=== PATIENT | male | born 1950 | race Caucasian/White ===

== ENCOUNTER 2017-12-09 18:40 | Inpatient (IN) | payer OTHER ==
[2017-12-09 21:01] LABS: KETONE, URINE AUTO RFX NEGATIVE (NEGATIVE); MUCUS, URINE RFX SMALL (NEGATIVE); NITRITE, URINE AUTO RFX NEGATIVE (NEGATIVE); RBC, URINE AUTO RFX 15 /HPF (0-3); SPECIFIC GRAVITY UR AUTO RFX 1.012 (1.002-1.035); SQUAM EPITHELIAL CELL UR AURFX 0 /HPF (0-6); WBC, URINE AUTO RFX 10 /HPF (0-3)
[2017-12-09 21:03] LABS: LEUKOCYTE ESTERASE UR AUTO RFX 1+ (NEGATIVE)
[2017-12-09 23:09] LABS: BASO % 0.8 % (0.0-1.0); EOS # 0.7 10^3/uL (0.0-0.50); EOS % 13.9 % (0.0-3.0); HEMATOCRIT 25.1 % (42.0-52.0); HEMOGLOBIN 7.3 g/dl (14.0-18.0); IMMATURE GRANULOCYTE % 0.2 % (0-0); LYMPH # 1.2 10^3/uL (1.5-4.5); LYMPH % 24.9 % (24.0-44.0); MEAN CORPUSCULAR HEMOGLOBIN 22.9 pg (27.0-33.0); MEAN CORPUSCULAR HGB CONC 29.1 g/dl (32.0-36.5); MEAN CORPUSCULAR VOLUME 78.7 fl (80.0-96.0); MONO # 0.5 10^3/uL (0.0-0.8); MONO % 9.8 % (0.0-5.0); NEUTROPHILS # 2.5 10^3/uL (1.8-7.7); NEUTROPHILS % 50.4 % (36.0-66.0); PLATELET COUNT, AUTOMATED 121 10^3/uL (150-450); RED BLOOD COUNT 3.19 10^6/uL (4.30-6.10); RED CELL DISTRIBUTION WIDTH 15.6 % (11.5-14.5); WHITE BLOOD COUNT 4.9 10^3/uL (4.0-10.0)
[2017-12-09] MEDS: NS 1,000 ML IV (23:15)
[2017-12-09 23:21] LABS: INR 1.07
[2017-12-09 23:22] LABS: PARTIAL THROMBOPLASTIN TIME 33.9 SECONDS (26.8-37.9)
[2017-12-09 23:25] LABS: LACTIC ACID SEPSIS PROTOCOL 0.7 MMOL/L (0.4-2.0)
[2017-12-09 23:35] LABS: ALKALINE PHOSPHATASE 119 U/L (45-117); ALT/SGPT 27 U/L (12-78); AMYLASE 46 U/L (25-115); ANION GAP 6 MEQ/L (8-16); AST/SGOT 35 U/L (7-37); BILIRUBIN,DIRECT 0.1 MG/DL (0.0-0.2); BILIRUBIN,TOTAL 0.3 MG/DL (0.2-1.0); BLOOD UREA NITROGEN 17 MG/DL (7-18); CALCIUM LEVEL 7.7 MG/DL (8.8-10.2); CARBON DIOXIDE LEVEL 26 MEQ/L (21-32); CHLORIDE LEVEL 111 MEQ/L (98-107); CPK CREATINE PHOSPHOKINASE 175 U/L (39-308); CREATININE FOR GFR 0.88 MG/DL (0.70-1.30); GLOMERULAR FILTRATION RATE > 60.0 (>49); GLUCOSE, FASTING 90 MG/DL (70-100); LIPASE 175 U/L (73-393); POTASSIUM SERUM 3.9 MEQ/L (3.5-5.1); SODIUM LEVEL 143 MEQ/L (136-145); TROPONIN I 0.22 NG/ML (< 0.10)
[2017-12-09 23:36] LABS: CK-MB VALUE MASS 5.2 NG/ML (0.0-3.6); MB/CK RELATIVE INDEX 2.97 (< OR =4)
[2017-12-09 23:46] LABS: ACETAMINOPHEN LEVEL < 2.0 UG/ML (10.0-30.0); ETHYL ALCOHOL (ETHANOL) < 0.003 % (0.000-0.010); SALICYLATE LEVEL 2.2 MG/DL (5.0-30.0)
[2017-12-10] MEDS ORDERED: ISOVUE-370 76% 100ML VIAL (Q9967) As Ordered (00:53)
[2017-12-10] MEDS: NORCO, ANEXSIA 5/325MG TABLET (HYDROcodone/ACETAMINOPHEN) PO (02:06)
[2017-12-10 02:30] LABS: IMMEDIATE SPIN CROSSMATCH 1 2
[2017-12-10] MEDS ORDERED: MORPHINE 2 MG/ML 1ML SYRINGE IV (02:45)
[2017-12-10] MEDS ORDERED: ONDANSETRON 4MG/2ML VIAL (J2405) IV (02:45)
[2017-12-10] MEDS ORDERED: LORazepam 2 MG/ML VIAL (J2060) IV (02:45)
[2017-12-10] MEDS: OXAZEPAM 15 MG CAP PO ×3 (04:01→21:11)
[2017-12-10] MEDS: MULTIVITAMIN -ADULT INJECTION 10 ML, THIAMINE INJection 100 MG, FOLIC ACID 1 MG in NS 1... IV (06:02)
[2017-12-10 06:50] LABS: BASO % 0.8 % (0.0-1.0); EOS # 0.7 10^3/uL (0.0-0.50); EOS % 14.8 % (0.0-3.0); HEMATOCRIT 28.8 % (42.0-52.0); HEMOGLOBIN 8.6 g/dl (14.0-18.0); IMMATURE GRANULOCYTE % 0.2 % (0-0); LYMPH # 1.2 10^3/uL (1.5-4.5); LYMPH % 23.6 % (24.0-44.0); MEAN CORPUSCULAR HEMOGLOBIN 23.7 pg (27.0-33.0); MEAN CORPUSCULAR HGB CONC 29.9 g/dl (32.0-36.5); MEAN CORPUSCULAR VOLUME 79.3 fl (80.0-96.0); MONO # 0.5 10^3/uL (0.0-0.8); NEUTROPHILS # 2.5 10^3/uL (1.8-7.7); NEUTROPHILS % 50.6 % (36.0-66.0); PLATELET COUNT, AUTOMATED 128 10^3/uL (150-450); RED BLOOD COUNT 3.63 10^6/uL (4.30-6.10); RED CELL DISTRIBUTION WIDTH 15.8 % (11.5-14.5)
[2017-12-10 07:03] LABS: ESTIMATED AVERAGE GLUCOSE 114 MG/DL (60-110); HEMOGLOBIN A1c 5.6 %
[2017-12-10 07:06] LABS: ANION GAP 5 MEQ/L (8-16); BLOOD UREA NITROGEN 16 MG/DL (7-18); CALCIUM LEVEL 7.9 MG/DL (8.8-10.2); CARBON DIOXIDE LEVEL 26 MEQ/L (21-32); CHLORIDE LEVEL 111 MEQ/L (98-107); CK-MB VALUE MASS 4.3 NG/ML (0.0-3.6); CPK CREATINE PHOSPHOKINASE 150 U/L (39-308); CREATININE FOR GFR 0.86 MG/DL (0.70-1.30); GLOMERULAR FILTRATION RATE > 60.0 (>49); GLUCOSE, FASTING 89 MG/DL (70-100); MB/CK RELATIVE INDEX 2.86 (< OR =4); SODIUM LEVEL 142 MEQ/L (136-145); TROPONIN I 0.22 NG/ML (< 0.10)
[2017-12-10 07:24] LABS: CHOLESTEROL LEVEL 141 MG/DL (<200); CHOLESTEROL RISK RATIO 2.104 (<5); HDL CHOLESTEROL 67 MG/DL (>40); LDL CHOLESTEROL 65.2 MG/DL (<100); NON-HDL-C 74 MG/DL; TRIGLYCERIDES LEVEL 44 MG/DL (<150)
[2017-12-10] MEDS: SUCRALFATE 1 GM TAB PO ×4 (07:53→21:11)
[2017-12-10 09:52] LABS: FERRITIN 7 NG/ML (26-388); IRON (FE) 70 UG/DL (65-175); PERCENT SATURATION 17.7 % (19.7-50.0); TOTAL IRON BINDING CAPACITY 395 UG/DL (250-450)
[2017-12-10 10:14] LABS: POS COUNT POS FLAG
[2017-12-10 10:15] LABS: RETIC HEMOGLOBIN EQUIVALENT 18.6 pg (24-36); RETICULOCYTE # 70.9 10^9/L (17-77); RETICULOCYTE % 2.1 % (0.5-1.5)
[2017-12-10] MEDS: OMEPRAZOLE 20 MG CAP PO (10:23)
[2017-12-10 12:56] LABS: HEMATOCRIT 29.3 % (42.0-52.0); HEMOGLOBIN 8.7 g/dl (14.0-18.0); MEAN CORPUSCULAR HGB CONC 29.7 g/dl (32.0-36.5); MEAN CORPUSCULAR VOLUME 80.7 fl (80.0-96.0); PLATELET COUNT, AUTOMATED 125 10^3/uL (150-450); RED BLOOD COUNT 3.63 10^6/uL (4.30-6.10); RED CELL DISTRIBUTION WIDTH 15.7 % (11.5-14.5); WHITE BLOOD COUNT 5.7 10^3/uL (4.0-10.0)
[2017-12-10 13:30] LABS: CK-MB VALUE MASS 3.8 NG/ML (0.0-3.6); CPK CREATINE PHOSPHOKINASE 135 U/L (39-308); MB/CK RELATIVE INDEX 2.81 (< OR =4); TROPONIN I 0.19 NG/ML (< 0.10)
[2017-12-10] MEDS ORDERED: SLF 3 ML SYR IV (17:00)
[2017-12-10 18:50] LABS: CPK CREATINE PHOSPHOKINASE 126 U/L (39-308); TROPONIN I 0.19 NG/ML (< 0.10)
[2017-12-10 18:51] LABS: CK-MB VALUE MASS 3.4 NG/ML (0.0-3.6); MB/CK RELATIVE INDEX 2.69 (< OR =4)
[2017-12-10] MEDS: SLF 3 ML SYR IV (21:11)
[2017-12-11] MEDS: CEPACOL LOZENGE PO (00:11)
[2017-12-11] MEDS: guaiFENesin DM LIQ 10ML UD PO (00:11)
[2017-12-11] MEDS: guaiFENesin ER 600 MG TAB PO ×3 (00:13→21:52)
[2017-12-11 04:33] LABS: BASO % 0.7 % (0.0-1.0); EOS # 0.9 10^3/uL (0.0-0.50); EOS % 14.3 % (0.0-3.0); HEMATOCRIT 29.9 % (42.0-52.0); HEMOGLOBIN 8.8 g/dl (14.0-18.0); IMMATURE GRANULOCYTE % 0.3 % (0-0); LYMPH # 0.9 10^3/uL (1.5-4.5); LYMPH % 15.3 % (24.0-44.0); MEAN CORPUSCULAR HEMOGLOBIN 23.3 pg (27.0-33.0); MEAN CORPUSCULAR HGB CONC 29.4 g/dl (32.0-36.5); MEAN CORPUSCULAR VOLUME 79.3 fl (80.0-96.0); MONO # 0.5 10^3/uL (0.0-0.8); MONO % 8.5 % (0.0-5.0); NEUTROPHILS # 3.7 10^3/uL (1.8-7.7); NEUTROPHILS % 60.9 % (36.0-66.0); PLATELET COUNT, AUTOMATED 134 10^3/uL (150-450); RED BLOOD COUNT 3.77 10^6/uL (4.30-6.10); RED CELL DISTRIBUTION WIDTH 15.8 % (11.5-14.5); WHITE BLOOD COUNT 6.1 10^3/uL (4.0-10.0)
[2017-12-11 05:04] LABS: ANION GAP 5 MEQ/L (8-16); BLOOD UREA NITROGEN 12 MG/DL (7-18); CALCIUM LEVEL 8.1 MG/DL (8.8-10.2); CARBON DIOXIDE LEVEL 26 MEQ/L (21-32); CHLORIDE LEVEL 111 MEQ/L (98-107); CREATININE FOR GFR 0.73 MG/DL (0.70-1.30); GLOMERULAR FILTRATION RATE > 60.0 (>49); GLUCOSE, FASTING 94 MG/DL (70-100); SODIUM LEVEL 142 MEQ/L (136-145)
[2017-12-11] MEDS: SLF 3 ML SYR IV ×3 (05:08→21:53)
[2017-12-11 08:06] LABS: ALPHA 1 ANTITRYPSIN 185 mg/dL (90-200)
[2017-12-11 08:06] LABS: HAPTOGLOBIN 79 mg/dL (34-200)
[2017-12-11] MEDS: SUCRALFATE 1 GM TAB PO ×4 (08:19→21:52)
[2017-12-11 08:27] LABS: CK-MB VALUE MASS 2.4 NG/ML (0.0-3.6); CPK CREATINE PHOSPHOKINASE 101 U/L (39-308); MB/CK RELATIVE INDEX 2.37 (< OR =4); TROPONIN I 0.15 NG/ML (< 0.10)
[2017-12-11] MEDS: OMEPRAZOLE 20 MG CAP PO (11:01)
[2017-12-11] MEDS: FUROSEMIDE 20 MG TAB PO (12:25)
[2017-12-12] MEDS: CEPACOL LOZENGE PO (04:24)
[2017-12-12] MEDS: SLF 3 ML SYR IV ×3 (04:25→21:30)
[2017-12-12 05:17] LABS: BASO % 0.8 % (0.0-1.0); EOS # 0.8 10^3/uL (0.0-0.50); EOS % 15.2 % (0.0-3.0); HEMATOCRIT 28.3 % (42.0-52.0); HEMOGLOBIN 8.5 g/dl (14.0-18.0); IMMATURE GRANULOCYTE % 0.2 % (0-0); LYMPH # 0.9 10^3/uL (1.5-4.5); LYMPH % 16.7 % (24.0-44.0); MEAN CORPUSCULAR HEMOGLOBIN 23.7 pg (27.0-33.0); MEAN CORPUSCULAR VOLUME 78.8 fl (80.0-96.0); MONO # 0.6 10^3/uL (0.0-0.8); NEUTROPHILS # 2.9 10^3/uL (1.8-7.7); NEUTROPHILS % 56.1 % (36.0-66.0); PLATELET COUNT, AUTOMATED 113 10^3/uL (150-450); RED BLOOD COUNT 3.59 10^6/uL (4.30-6.10); RED CELL DISTRIBUTION WIDTH 15.9 % (11.5-14.5); WHITE BLOOD COUNT 5.2 10^3/uL (4.0-10.0)
[2017-12-12 05:38] LABS: ANION GAP 7 MEQ/L (8-16); BLOOD UREA NITROGEN 10 MG/DL (7-18); CALCIUM LEVEL 7.7 MG/DL (8.8-10.2); CARBON DIOXIDE LEVEL 28 MEQ/L (21-32); CHLORIDE LEVEL 112 MEQ/L (98-107); CREATININE FOR GFR 0.74 MG/DL (0.70-1.30); GLOMERULAR FILTRATION RATE > 60.0 (>49); GLUCOSE, FASTING 106 MG/DL (70-100); SODIUM LEVEL 147 MEQ/L (136-145)
[2017-12-12] MEDS: SUCRALFATE 1 GM TAB PO ×4 (08:28→21:30)
[2017-12-12] MEDS: OMEPRAZOLE 20 MG CAP PO (08:28)
[2017-12-12] MEDS: guaiFENesin ER 600 MG TAB PO ×2 (08:29→21:30)
[2017-12-12] MEDS: FUROSEMIDE 20 MG TAB PO (08:29)
[2017-12-12 08:39] LABS: REASON FOR REVIEW COMPREHENSIVE REVIEW; SLIDE REVIEW Report; SOURCE PERIPHERAL SMEAR
[2017-12-12 09:37] LABS: CK-MB VALUE MASS 1.9 NG/ML (0.0-3.6); CPK CREATINE PHOSPHOKINASE 99 U/L (39-308); MB/CK RELATIVE INDEX 1.91 (< OR =4)
[2017-12-12 10:07] LABS: VITAMIN B12 LEVEL 277 PG/ML (247-911)
[2017-12-12 10:08] LABS: FOLATE > 24.0 NG/ML (>5.4)
[2017-12-12 10:18] LABS: HEPATITIS B SURFACE ANTIGEN NEGATIVE (NEGATIVE)
[2017-12-12 10:40] LABS: HEPATITIS C VIRUS ABY INDEX < 0.0 INDEX (<0.8)
[2017-12-12 10:41] LABS: HEPATITIS B CORE ANTIBODY IGM NEGATIVE (NEGATIVE)
[2017-12-12 10:44] LABS: HEPATITIS A ANTIBODY IGM NEGATIVE (NEGATIVE)
[2017-12-12 11:57] LABS: ESTIMATED AVERAGE GLUCOSE 123 MG/DL (60-110); HEMOGLOBIN A1c 5.9 %
[2017-12-12] MEDS: BENZONATATE 100 MG CAP PO ×3 (12:17→21:34)
[2017-12-12 15:19] LABS: SPEC. GRAVITY BODY FLUIDS 1.012 (NOT ESTABLISHED)
[2017-12-12 15:37] LABS: SOURCE, BODY FLUID ALBUMIN ASCITES; SOURCE, BODY FLUID GLUCOSE ASCITES; SOURCE, BODY FLUID TOT PROTEIN ASCITES; TOTAL PROTEIN, BODY FLUID 1.4 G/DL (NOT ESTABLISHED)
[2017-12-12 15:41] LABS: RBC BODY FLUID < 2 10^3/uL (<2)
[2017-12-12 15:42] LABS: APPEARANCE, BODY FLUID CLEAR (CLEAR); ASCITES FL COLOR PALE YELLOW (COLORLESS); BF DIFF IF INDICATED? NO (NO); SOURCE, BODY FLUID ASCITES; WBC BODY FLUID < 1 /uL (0-10)
[2017-12-12 17:13] LABS: CK-MB VALUE MASS 1.9 NG/ML (0.0-3.6); CPK CREATINE PHOSPHOKINASE 112 U/L (39-308); MB/CK RELATIVE INDEX 1.69 (< OR =4); TROPONIN I 0.08 NG/ML (< 0.10)
[2017-12-13 00:08] LABS: ANTINUCLEAR ANTIBODIES DIRECT Negative (Negative); CERULOPLASMIN 31.1 mg/dL (16.0-31.0)
[2017-12-13] MEDS: SLF 3 ML SYR IV ×2 (04:52→14:13)
[2017-12-13 05:43] LABS: BASO % 0.6 % (0.0-1.0); EOS # 0.7 10^3/uL (0.0-0.50); EOS % 14.7 % (0.0-3.0); HEMATOCRIT 29.5 % (42.0-52.0); HEMOGLOBIN 8.9 g/dl (14.0-18.0); IMMATURE GRANULOCYTE % 0.4 % (0-0); LYMPH % 19.9 % (24.0-44.0); MEAN CORPUSCULAR HEMOGLOBIN 23.9 pg (27.0-33.0); MEAN CORPUSCULAR HGB CONC 30.2 g/dl (32.0-36.5); MEAN CORPUSCULAR VOLUME 79.1 fl (80.0-96.0); MONO # 0.6 10^3/uL (0.0-0.8); MONO % 11.8 % (0.0-5.0); NEUTROPHILS # 2.5 10^3/uL (1.8-7.7); NEUTROPHILS % 52.6 % (36.0-66.0); PLATELET COUNT, AUTOMATED 116 10^3/uL (150-450); RED BLOOD COUNT 3.73 10^6/uL (4.30-6.10); RED CELL DISTRIBUTION WIDTH 16.1 % (11.5-14.5); WHITE BLOOD COUNT 4.8 10^3/uL (4.0-10.0)
[2017-12-13 06:07] LABS: ANION GAP 7 MEQ/L (8-16); BLOOD UREA NITROGEN 12 MG/DL (7-18); CALCIUM LEVEL 7.8 MG/DL (8.8-10.2); CARBON DIOXIDE LEVEL 26 MEQ/L (21-32); CHLORIDE LEVEL 109 MEQ/L (98-107); CREATININE FOR GFR 0.78 MG/DL (0.70-1.30); GLOMERULAR FILTRATION RATE > 60.0 (>49); GLUCOSE, FASTING 136 MG/DL (70-100); POTASSIUM SERUM 3.7 MEQ/L (3.5-5.1); SODIUM LEVEL 142 MEQ/L (136-145)
[2017-12-13 07:38] LABS: ALBUMIN 2.9 GM/DL (3.2-5.2)
[2017-12-13] MEDS: BENZONATATE 100 MG CAP PO (09:06)
[2017-12-13] MEDS: SUCRALFATE 1 GM TAB PO ×2 (09:06→12:28)
[2017-12-13] MEDS: FUROSEMIDE 20 MG TAB PO (09:41)
[2017-12-13] MEDS: OMEPRAZOLE 20 MG CAP PO (09:41)
[2017-12-13] MEDS: guaiFENesin ER 600 MG TAB PO (09:41)
== END 2017-12-13 15:10 | disposition home or self-care (01) | DRG 812 ==
LOC: M ED 18:40 → M ED INP 12-10 02:32 → M PCU 12-10 16:17
PROC: 30233N1 Transfusion of Nonautologous Red Blood Cells into Peripheral Vein, Percutaneous Approach (ICD-10-PCS; principal; 2017-12-10)
PROC: 0W9G3ZZ Drainage of Peritoneal Cavity, Percutaneous Approach (ICD-10-PCS; 2017-12-12)
DX: D64.9 Anemia, unspecified (principal); K70.31 Alcoholic cirrhosis of liver with ascites; K57.30 Diverticulosis of large intestine without perforation or abscess without bleeding; N20.0 Calculus of kidney; D69.6 Thrombocytopenia, unspecified; F10.20 Alcohol dependence, uncomplicated; E88.09 Other disorders of plasma-protein metabolism, not elsewhere classified; R16.1 Splenomegaly, not elsewhere classified; Z96.642 Presence of left artificial hip joint; Z87.891 Personal history of nicotine dependence

== ENCOUNTER → 2017-12-15 | Outpatient (CLI) | payer OTHER ==
[2017-12-15 07:33] LABS: HEMATOCRIT 34.6 % (42.0-52.0); HEMOGLOBIN 10.3 g/dl (14.0-18.0); MEAN CORPUSCULAR HEMOGLOBIN 23.5 pg (27.0-33.0); MEAN CORPUSCULAR HGB CONC 29.8 g/dl (32.0-36.5); PLATELET COUNT, AUTOMATED 147 10^3/uL (150-450); RED BLOOD COUNT 4.38 10^6/uL (4.30-6.10); RED CELL DISTRIBUTION WIDTH 16.2 % (11.5-14.5); WHITE BLOOD COUNT 5.4 10^3/uL (4.0-10.0)
[2017-12-15 07:45] LABS: INR 1.07
[2017-12-15 08:05] LABS: ALBUMIN 3.1 GM/DL (3.2-5.2); ALBUMIN/GLOBULIN RATIO 0.94 (1.00-1.93); ALKALINE PHOSPHATASE 137 U/L (45-117); ALT/SGPT 31 U/L (12-78); ANION GAP 4 MEQ/L (8-16); AST/SGOT 34 U/L (7-37); BILIRUBIN,TOTAL 0.4 MG/DL (0.2-1.0); BLOOD UREA NITROGEN 17 MG/DL (7-18); CALCIUM LEVEL 8.2 MG/DL (8.8-10.2); CARBON DIOXIDE LEVEL 29 MEQ/L (21-32); CHLORIDE LEVEL 107 MEQ/L (98-107); CHOLESTEROL LEVEL 171 MG/DL (<200); CREATININE FOR GFR 0.79 MG/DL (0.70-1.30); GLOMERULAR FILTRATION RATE > 60.0 (>49); GLUCOSE, FASTING 90 MG/DL (70-100); HDL CHOLESTEROL 66 MG/DL (>40); LDL CHOLESTEROL 92.2 MG/DL (<100); NON-HDL-C 105 MG/DL; POTASSIUM SERUM 4.2 MEQ/L (3.5-5.1); PROSTATIC SPECIFIC AG MONITOR 0.24 NG/ML (< 4.0); SODIUM LEVEL 140 MEQ/L (136-145); TOTAL PROTEIN 6.4 GM/DL (6.4-8.2); TRIGLYCERIDES LEVEL 64 MG/DL (<150)
[2017-12-15 08:27] LABS: ESTIMATED AVERAGE GLUCOSE 117 MG/DL (60-110); HEMOGLOBIN A1c 5.7 %
[2017-12-16 14:50] LABS: HEPATITIS B SURFACE ANTIGEN NEGATIVE (NEGATIVE)
[2017-12-16 15:07] LABS: HEPATITIS B CORE ANTIBODY IGM NEGATIVE (NEGATIVE)
[2017-12-16 15:08] LABS: HEPATITIS A ANTIBODY IGM NEGATIVE (NEGATIVE)
== END ==
LOC: M LAB 06:16
DX: D64.9 Anemia, unspecified (principal); R53.83 Other fatigue; E03.9 Hypothyroidism, unspecified
CPT/HCPCS: 84443

== ENCOUNTER 2018-05-01 11:30 | Day surgery (SDC) | payer OTHER ==
[2018-05-01] MEDS: NS 1,000 ML IV (12:00)
[2018-05-01] MEDS ORDERED: PROPOFOL 500 MG/50 ML VIAL As Ordered (13:20)
[2018-05-01] MEDS ORDERED: LIDOCAINE 2% INJ 100 MG/5 ML SDV (FOR ANES.) As Ordered (13:20)
[2018-05-01] MEDS ORDERED: fentaNYL 100 MCG/2 ML INJECTION (J3010) As Ordered (13:20)
== END 2018-05-01 15:12 | disposition home or self-care (01) ==
LOC: M OPP 11:30
DX: Z12.11 Encounter for screening for malignant neoplasm of colon (principal); D12.5 Benign neoplasm of sigmoid colon; D12.3 Benign neoplasm of transverse colon; K64.0 First degree hemorrhoids; K57.30 Diverticulosis of large intestine without perforation or abscess without bleeding; K74.60 Unspecified cirrhosis of liver; I85.10 Secondary esophageal varices without bleeding; K76.6 Portal hypertension; K31.89 Other diseases of stomach and duodenum; Z87.19 Personal history of other diseases of the digestive system; Z86.79 Personal history of other diseases of the circulatory system; R06.83 Snoring; Z96.642 Presence of left artificial hip joint; F17.210 Nicotine dependence, cigarettes, uncomplicated
CPT/HCPCS: 45385

== ENCOUNTER → 2018-08-17 | Outpatient (CLI) | payer OTHER | LOC: M WUC 18:33 | DX: M77.31 Calcaneal spur, right foot (principal) | CPT/HCPCS: 73650 ==

== ENCOUNTER 2018-10-01 04:30 | Emergency (ER) | payer OTHER ==
[2018-10-01] MEDS: methylPREDNISolone SUSP 40 MG/ML (DEPO-medrol) VIAL (J1030) IM (06:15)
[2018-10-01] MEDS ORDERED: LIDOCAINE 1% SDV INJ 30 ML VIAL SC (06:15)
[2018-10-01] MEDS: LIDOCAINE 1% MDV 20ML VIAL SC (06:35)
== END 2018-10-01 06:57 | disposition home or self-care (01) ==
LOC: M ED 04:30
DX: M72.2 Plantar fascial fibromatosis (principal); I10 Essential (primary) hypertension; K74.60 Unspecified cirrhosis of liver; F17.210 Nicotine dependence, cigarettes, uncomplicated
CPT/HCPCS: J1030

== ENCOUNTER → 2020-04-11 | Outpatient (CLI) | payer OTHER ==
[~2020-04-11] MED LIST: ALEV220C2 PO; AMOX875T PO; BENZ-18 PO; CEPA1LOZ2 PO; DEXTROMETHORPHAN PO; GUAIFENESIN PO; HYDR-3713 PO; IBUP-1022 PO; IBUP-1114 PO; LASI20TA3 PO; MAGN250T9 PO; MUCI600T37 PO; OXAZ10CA3 PO; SOMA350T PO; SPIR50TA4 PO; VITATAB11 PO
[2020-04-11 14:34] LABS: BLOOD UREA NITROGEN 19 MG/DL (7-18); CREATININE FOR GFR 1.01 MG/DL (0.70-1.30); GLOMERULAR FILTRATION RATE > 60.0 (>49)
== END ==
LOC: M LAB 13:39
PROVIDERS: ATTEND Physician Assistant Medical
DX: I81 Portal vein thrombosis (principal)

== ENCOUNTER → 2020-04-21 | Outpatient (CLI) | payer OTHER ==
[~2020-04-21] MED LIST changes: +PROHANCE 279.3MG/ML 15ML VIAL As Ordered ONE; +PROHANCE 279.3MG/ML 5ML VIAL As Ordered ONE
--- NOTE | 2020-04-21 16:22 | REP ---
MRI ABDOMEN WITH AND WITHOUT CONTRAST: HISTORY: Superior mesenteric vein thrombosis. TECHNIQUE: Multiple sequences obtained in the axial and coronal planes prior to and following the intravenous administration of 17 mL ProHance. The liver has a cirrhotic appearance. There is diffuse heterogeneous signal and enhancement but no suspicious enhancing mass. Margins of the liver are micronodular. Spleen is enlarged. Length of the spleen is approximately 17.3 cm with no intrinsic abnormality identified. Adrenal glands are normal. No pancreatic mass or pancreatic duct dilatation is seen. Gallbladder is mildly distended with mid diffuse wall thickening. There is no biliary dilatation. Bilateral renal cysts are present. The largest cyst is in the upper pole of the left kidney 7.4 cm in diameter. There is no adenopathy. There is mild perihepatic ascites. On the postcontrast images, there is a moderate amount of thrombus throughout the superior mesenteric vein. This does not occlude the superior mesenteric vein. A very small amount extends into the very proximal aspect of the main portal vein. However, the remaining portal veins including the intrahepatic portions demonstrate no evidence of thrombus. There is no hepatic vein thrombosis. Main portal vein is dilated, consistent with portal hypertension, measuring approximately 18-19 mm in maximum diameter. There is no splenic vein thrombosis. IMPRESSION: Cirrhotic liver with mild perihepatic ascites. Moderate splenomegaly. Dilated main portal vein, consistent with portal hypertension. There is diffuse moderate nonocclusive thrombus throughout the superior mesenteric vein. Very small amount of thrombus is seen extending into the very proximal aspect of the main portal vein. However, the remaining portal venous system demonstrates no evidence of thrombus. Electronically Signed by Gal Mcwilliams MD 04/21/2020 11:07 P
== END ==
LOC: M RAD 07:10
DX: I81 Portal vein thrombosis (principal); K74.60 Unspecified cirrhosis of liver; R16.1 Splenomegaly, not elsewhere classified; K55.069 Acute infarction of intestine, part and extent unspecified
CPT/HCPCS: 74183; A9576

== ENCOUNTER → 2020-04-23 | Outpatient (CLI) | payer OTHER ==
[~2020-04-23] MED LIST changes: -PROHANCE 279.3MG/ML 5ML VIAL As Ordered ONE
--- NOTE | 2020-04-23 14:01 | REP ---
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 . Multiple sequences obtained prior to and following the intravenous administration of 30 mL ProHance. Comparison is made with prior study of 04/21/2020. Once again, there is partial thrombosis of the superior mesenteric vein. A moderate amount of thrombus is seen diffusely up to the primary bifurcation of the superior mesenteric vein. This is unchanged. There is very mild eccentric thrombus anterior on the right of the main portal vein at its origin. This is also unchanged. There is no other evidence of portal vein thrombosis. Splenic vein is patent with no thrombus. Once again, the liver is noted to be cirrhotic. There is splenomegaly. The main portal vein is dilated consistent with portal hypertension. There are bilateral renal cysts. There is mild perihepatic ascites. IMPRESSION: No change in the partial thrombosis of superior mesenteric vein compared to the prior study of 04/21/2020. Minimal thrombosis extends into the origin of the main portal vein. No splenic vein thrombosis. Electronically Signed by Gal Mcwilliams MD 04/24/2020 11:22 A
== END ==
LOC: M RAD 10:17
DX: I81 Portal vein thrombosis (principal); K55.069 Acute infarction of intestine, part and extent unspecified
CPT/HCPCS: A9576; C8902

== ENCOUNTER → 2020-12-17 | Outpatient (CLI) | payer OTHER ==
[~2020-12-17] MED LIST changes: -PROHANCE 279.3MG/ML 15ML VIAL As Ordered ONE
--- NOTE | 2020-12-17 13:35 | REP ---
INDICATION: CIRRHOSIS OF LIVER COMPARISON: 06/02/2014 TECHNIQUE: Real time combs scale and color B-mode ultrasound examination using curved array transducer. FINDINGS: Liver is heterogeneous with coarsened echotexture consistent with known cirrhosis. Main portal vein is dilated to 19 mm and demonstrates normal hepatopetal flow. SMV demonstrates normal flow direction. No focal hepatic mass lesion identified. Small to moderate amount of right upper quadrant/perihepatic ascites noted. Pancreas is incompletely evaluated due to interposed bowel gas but visualized portions appear normal. The gallbladder is normal and without gallstones, wall thickening, or pericholecystic fluid. No biliary ductal dilatation is appreciated and the common bile duct measures 6.3 mm diameter. Right kidney is normal in reniform shape without hydronephrosis and measures 10.5 x 6.2 x 5.2 cm with 2.3 cm upper pole cyst. IMPRESSION: Findings again consistent with hepatocellular disease/cirrhosis. No focal hepatic lesion. [id number] perihepatic ascites. <Electronically signed by Phani Lyons > 12/17/20 [id number]
== END ==
LOC: M RAD 09:02
PROVIDERS: ATTEND Physician Assistant Medical
DX: K74.60 Unspecified cirrhosis of liver (principal); R18.8 Other ascites

== ENCOUNTER → 2021-04-04 | Outpatient (CLI) | payer OTHER ==
[~2021-04-04] MED LIST changes: +FERR325T81 PO; +NADO20TA PO; +OMEP1CAP73 PO; +VITATAB73 PO; +VITMTA PO
== END ==
LOC: M LABSMTC 08:00
PROVIDERS: ATTEND Anesthesiology
DX: Z20.828 Contact with and (suspected) exposure to other viral communicable diseases (principal); Z11.59 Encounter for screening for other viral diseases

== ENCOUNTER → 2021-04-07 | Day surgery (SDC) | payer OTHER ==
[~2021-04-07] VITALS: Ht 177.8 cm; Wt 87.1 kg
[~2021-04-07] MED LIST changes: +LIDOCAINE 2% 100MG/5ML SDV (FOR ANES.) As Ordered ONE; +NS 1,000 ML IV ONE; +fentaNYL 100 MCG/2 ML INJECTION (J3010) As Ordered ONE; +propofoL 200 MG/20 ML VIAL As Ordered ONE
[2021-04-07 08:43] VITALS: BP 139/78
--- NOTE | 2021-04-07 09:25 | ROOR ---
Patient Name: Devon Robertson Procedure Date: 04/07/2021 7:57 AM Date of : 1950 Age: 70 Room: [facility] Gender: Male Note Status: Finalized Procedure: Upper GI endoscopy Indications: For therapy of esophageal varices Providers: Rudy Mcmanus MD Referring MD: [facility] Sham[facility] PRATER [facility], Admin. Requesting Provider: Medicines: Monitored Anesthesia Care Complications: No immediate complications. Procedure: Pre-Anesthesia Assessment: - Prior to the procedure, a History and Physical was performed, and patient medications and allergies were reviewed. The patient is competent. The risks and benefits of the procedure and the sedation options and risks were discussed with the patient. All questions were answered and informed consent was obtained. Patient identification and proposed procedure were verified by the physician, the nurse and the anesthesiologist in the procedure room. Mental Status Examination: alert and oriented. Airway Examination: normal oropharyngeal airway and neck mobility. Respiratory Examination: clear to auscultation. CV Examination: normal. Prophylactic Antibiotics: The patient does not require prophylactic antibiotics. Prior Anticoagulants: The patient has taken no previous anticoagulant or antiplatelet agents. ASA Grade Assessment: II - A patient with mild systemic disease. After reviewing the risks and benefits, the patient was deemed in satisfactory condition to undergo the procedure. The anesthesia plan was to use monitored anesthesia care (MAC). Immediately prior to administration of medications, the patient was re-assessed for adequacy to receive sedatives. The heart rate, respiratory rate, oxygen saturations, blood pressure, adequacy of pulmonary ventilation, and response to care were monitored throughout the procedure. The physical status of the patient was re-assessed after the procedure. The Endoscope was introduced through the mouth, and advanced to the second part of duodenum. The upper GI endoscopy was accomplished without difficulty. The patient tolerated the procedure well. Findings: Three columns of non-bleeding grade II varices were found in the middle third of the esophagus and in the lower third of the esophagus,. No stigmata of recent bleeding were evident and no red suhail signs were present. Scarring from prior treatment was visible. Evidence of partial eradication was visible. Four bands were successfully placed with complete eradication, resulting in deflation of varices. There was no bleeding during and at the end of the procedure. Patchy moderate inflammation characterized by congestion (edema), erosions, erythema, friability and granularity was found in the gastric body and in the gastric antrum. Biopsies were taken with a cold forceps for Helicobacter pylori testing. Verification of patient identification for the specimen was done by the physician and nurse using the patient's name, date and medical record number. Estimated blood loss was minimal. The duodenal bulb and second portion of the duodenum were normal. Impression: - Non-bleeding grade II esophageal varices. Completely eradicated. Banded. - Gastritis. Biopsied. - Normal duodenal bulb and second portion of the duodenum. Recommendation: - Patient has a contact number available for emergencies. The signs and symptoms of potential delayed complications were discussed with the patient. Return to normal activities tomorrow. Written discharge instructions were provided to the patient. - Clear liquid diet today, then advance as tolerated to mechanical soft diet and low sodium diet. - No ibuprofen, naproxen, or other non-steroidal anti-inflammatory drugs. - Continue present medications. - Use Protonix (pantoprazole) 40 mg PO twice daily - to be taken in morning (1/2 hour before breakfast) and at bedtime ( atleast 3 hours after last meal) for 6 weeks. - Use sucralfate suspension 1 gram PO QID for 2 weeks. - Repeat upper endoscopy in 1 year per protocol. - Return to GI clinic in [facility] (address [address], [address], [place], [facility]) in 4 -- 6 weeks. Please call GI clinic @ [phone] for apppointment date and time. - Await pathology results. - Return to primary care physician. Procedure Code(s): --- Professional --- 42056, Esophagogastroduodenoscopy, flexible, transoral; with band ligation of esophageal/gastric varices 60134, Esophagogastroduodenoscopy, flexible, transoral; with biopsy, single or multiple Diagnosis Code(s): --- Professional --- I85.00, Esophageal varices without bleeding K29.70, Gastritis, unspecified, without bleeding CPT copyright 2019 [employer]. All rights reserved. The codes documented in this report are preliminary and upon carrier associate review may be revised to meet current compliance requirements. Rudy Mcmanus MD Rudy Mcmanus MD 04/07/2021 9:25:03 AM Electronically signed by Rudy Mcmanus MD Number of Addenda: 0 Note Initiated On: 04/07/2021 7:57 AM Estimated Blood Loss: Estimated blood loss was minimal.
== END | disposition home or self-care (01) ==
LOC: M OPP 06:59
PROVIDERS: ATTEND Internal Medicine Gastroenterology
DX: K29.70 Gastritis, unspecified, without bleeding (principal); I85.00 Esophageal varices without bleeding; Z79.899 Other long term (current) drug therapy; Z87.891 Personal history of nicotine dependence
CPT/HCPCS: 43239; 43244; 88305; J3010

== ENCOUNTER → 2021-08-21 | Outpatient (CLI) | payer OTHER ==
[~2021-08-21] MED LIST changes: -LIDOCAINE 2% 100MG/5ML SDV (FOR ANES.) As Ordered ONE; -NS 1,000 ML IV ONE; -fentaNYL 100 MCG/2 ML INJECTION (J3010) As Ordered ONE; -propofoL 200 MG/20 ML VIAL As Ordered ONE
--- NOTE | 2021-08-21 09:20 | REP ---
INDICATION: ESOPHAGEAL VARICES WITHOUT BLEEDING COMPARISON: 12/17/2020 TECHNIQUE: Real time combs scale ultrasound examination using curved array transducer. FINDINGS: Liver demonstrates coarsened echotexture consistent with cirrhosis. The main portal vein is dilated to 21 mm and demonstrates nonocclusive thrombus with otherwise normal flow direction and venous wave pattern at 24 cm/sec. Very small amount of perihepatic ascites noted. Gallbladder demonstrates wall thickening which may be secondary to chronic cirrhosis. No evidence for gallstones or pericholecystic fluid. No biliary ductal dilatation is appreciated and the common bile duct measures 4.3 mm diameter. Visualized portions of the pancreas are unremarkable. Splenomegaly noted (splenic index 1560) without evidence for focal splenic lesion identified. The bilateral kidneys are relatively normal and without hydronephrosis. Right kidney measures 11.5 x 6.4 x 5.9 cm and includes 2.5 cm upper pole cyst. Left kidney measures 13.2 x 5.6 x 4.8 cm and includes 8 cm upper pole cyst and 1.7 cm midpole cyst. Abdominal aorta is incompletely evaluated due to interposed bowel gas. IMPRESSION: 1. Cirrhosis with evidence for portal venous hypertension including splenomegaly and dilated main portal vein with nonocclusive thrombus noted. Trace perihepatic ascites. 2. Bilateral renal cysts (left greater than right). <Electronically signed by Phani Lyons > 08/21/21 [id number]
== END ==
LOC: M RAD 08:16
PROVIDERS: ATTEND Internal Medicine Gastroenterology
DX: K74.60 Unspecified cirrhosis of liver (principal); N28.1 Cyst of kidney, acquired; I85.00 Esophageal varices without bleeding

== ENCOUNTER → 2021-08-26 | Outpatient (REF) | payer OTHER | LOC: M LAB REF 18:15 | PROVIDERS: ATTEND Surgery | DX: C44.612 Basal cell carcinoma of skin of right upper limb, including shoulder (principal) ==

== ENCOUNTER → 2021-10-12 | Outpatient (REF) | payer OTHER | LOC: M LAB REF 18:22 | PROVIDERS: ATTEND Surgery | DX: D48.5 Neoplasm of uncertain behavior of skin (principal) ==

== ENCOUNTER → 2022-03-10 | Outpatient (CLI) | payer OTHER ==
[~2022-03-10] MED LIST changes: +BENZ1LOZ10 PO; -CEPA1LOZ2 PO; +EQL50TAB2 PO; +PANT40TA29 PO; +RA M500C PO; +[UNRECOGNIZED DRUG - CODE] PO
== END ==
LOC: M LABSMTC 11:07
PROVIDERS: ATTEND Anesthesiology
DX: Z01.818 Encounter for other preprocedural examination (principal); Z11.52 Encounter for screening for COVID-19

== ENCOUNTER → 2022-03-30 | Outpatient (CLI) | payer OTHER | LOC: M WHC 07:02 | PROVIDERS: ATTEND Internal Medicine Gastroenterology | DX: K70.30 Alcoholic cirrhosis of liver without ascites (principal) ==

== ENCOUNTER → 2022-04-14 | Outpatient (CLI) | payer OTHER ==
[~2022-04-14] MED LIST changes: +SUCR1SS PO
== END ==
LOC: M LABSMTC 10:32
PROVIDERS: ATTEND Anesthesiology
DX: Z01.818 Encounter for other preprocedural examination (principal); Z11.52 Encounter for screening for COVID-19

== ENCOUNTER 2022-04-16 11:04 | Day surgery (SDC) | payer OTHER ==
[~2022-04-16] VITALS: Ht 177.8 cm; Wt 87.0 kg
[~2022-04-16 11:04] MED LIST changes: +LIDOCAINE 2% 100MG/5ML SDV (FOR ANES.) As Ordered ONE; +NS 1,000 ML IV ONE; +fentaNYL 100 MCG/2 ML INJECTION As Ordered ONE; +propofoL 200 MG/20 ML VIAL As Ordered ONE
[2022-04-16] MEDS ORDERED: fentaNYL 100 MCG/2 ML INJECTION As Ordered ONE (12:36)
[2022-04-16] MEDS ORDERED: propofoL 200 MG/20 ML VIAL As Ordered ONE ×2 (12:36→13:06)
[2022-04-16] MEDS ORDERED: LIDOCAINE 2% 100MG/5ML SDV (FOR ANES.) As Ordered ONE (12:36)
[2022-04-16 13:17] VITALS: BP 120/9
[2022-04-16] MEDS ORDERED: ONDANSETRON 4MG/2ML VIAL As Ordered ONE (13:48)
== END 2022-04-16 14:22 | disposition home or self-care (01) ==
LOC: M OPP 11:04
PROVIDERS: ATTEND Internal Medicine Gastroenterology
CPT/HCPCS: 43244; J2405; J3010

== ENCOUNTER 2022-10-02 15:11 | Emergency (ER) | payer OTHER ==
[~2022-10-02] VITALS: Ht 177.8 cm; Wt 93.2 kg
[~2022-10-02 15:11] MED LIST changes: -LIDOCAINE 2% 100MG/5ML SDV (FOR ANES.) As Ordered ONE; -NS 1,000 ML IV ONE; -fentaNYL 100 MCG/2 ML INJECTION As Ordered ONE; -propofoL 200 MG/20 ML VIAL As Ordered ONE
[2022-10-02] MEDS ORDERED: TRAM50TA2 PO ×2 (22:59→23:01)
[2022-10-02 23:26] VITALS: BP 136/80
== END 2022-10-02 23:27 | disposition home or self-care (01) ==
LOC: M ED 18:49
DX: S76.012A Strain of muscle, fascia and tendon of left hip, initial encounter (principal); W01.0XXA Fall on same level from slipping, tripping and stumbling without subsequent striking against object, initial encounter; Y92.009 Unspecified place in unspecified non-institutional (private) residence as the place of occurrence of the external cause; D69.6 Thrombocytopenia, unspecified; D64.9 Anemia, unspecified; K74.60 Unspecified cirrhosis of liver; I85.00 Esophageal varices without bleeding; Z79.899 Other long term (current) drug therapy

== ENCOUNTER → 2022-10-20 | Outpatient (CLI) | payer OTHER ==
[~2022-10-20] MED LIST changes: +TRAM50TA2 PO
== END ==
LOC: M SOG 07:52
PROVIDERS: ATTEND Orthopaedic Surgery Adult Reconstructive Orthopaedic Surgery
DX: M25.552 Pain in left hip (principal); Z53.9 Procedure and treatment not carried out, unspecified reason

== ENCOUNTER → 2022-11-17 | Outpatient (CLI) | payer OTHER | LOC: M RAD 07:04 | PROVIDERS: ATTEND Internal Medicine Gastroenterology | DX: K70.30 Alcoholic cirrhosis of liver without ascites (principal) ==

== ENCOUNTER → 2022-11-25 | Outpatient (CLI) | payer OTHER | LOC: M RAD 09:27 | PROVIDERS: ATTEND Orthopaedic Surgery Adult Reconstructive Orthopaedic Surgery | DX: Z96.642 Presence of left artificial hip joint (principal) | CPT/HCPCS: 78315; A9503 ==

== ENCOUNTER → 2022-12-01 | Outpatient (CLI) | payer OTHER | LOC: M SOG 15:35 | PROVIDERS: ATTEND Orthopaedic Surgery Adult Reconstructive Orthopaedic Surgery | DX: M17.0 Bilateral primary osteoarthritis of knee (principal); M25.561 Pain in right knee; M25.562 Pain in left knee ==

== ENCOUNTER → 2022-12-02 | Outpatient (CLI) | payer OTHER | LOC: M LAB 08:49 | PROVIDERS: ATTEND Internal Medicine Gastroenterology | DX: K70.30 Alcoholic cirrhosis of liver without ascites (principal) ==

== ENCOUNTER → 2022-12-08 | Outpatient (CLI) | payer MEDICARE, OTHER ==
[2022-12-08 18:36] LABS: BLOOD UREA NITROGEN 22 MG/DL (9-23); CREATININE FOR GFR 0.95 MG/DL (0.70-1.30); GLOMERULAR FILTRATION RATE > 60.0 (>49)
== END ==
LOC: M LAB 17:37
PROVIDERS: ATTEND Orthopaedic Surgery Adult Reconstructive Orthopaedic Surgery
DX: M17.0 Bilateral primary osteoarthritis of knee (principal)

== ENCOUNTER → 2022-12-16 | Outpatient (CLI) | payer OTHER | LOC: M PLARAD 10:11 | PROVIDERS: ATTEND Orthopaedic Surgery Adult Reconstructive Orthopaedic Surgery | DX: M89.9 Disorder of bone, unspecified (principal); M94.262 Chondromalacia, left knee; M85.652 Other cyst of bone, left thigh ==

== ENCOUNTER 2023-02-12 07:44 | Emergency (ER) | payer OTHER ==
[~2023-02-12] VITALS: Ht 177.8 cm; Wt 88.4 kg
[2023-02-12] MEDS ORDERED: PRES10CA2 (08:08)
[2023-02-12] MEDS ORDERED: NS 1,000 ML IV ONE ×2 (08:20→09:30)
[2023-02-12 08:49] LABS: BASO % 0.3 % (0.0-1.0); EOS # 0.1 10^3/uL (0.0-0.5); HEMATOCRIT 42.6 % (42.0-52.0); HEMOGLOBIN 14.3 g/dl (13.5-17.5); LYMPH # 0.8 10^3/uL (1.5-5.0); LYMPH % 13.1 % (24.0-44.0); MEAN CORPUSCULAR HEMOGLOBIN 28.8 pg (27.0-33.0); MEAN CORPUSCULAR HGB CONC 33.6 g/dl (32.0-36.5); MEAN CORPUSCULAR VOLUME 85.9 fl (80.0-96.0); MONO # 1.1 10^3/uL (0.0-0.8); MONO % 17.5 % (2.0-8.0); NEUTROPHILS % 66.9 % (36.0-66.0); RED BLOOD COUNT 4.96 10^6/uL (4.30-6.10)
[2023-02-12 09:11] LABS: PLATELET COUNT, AUTOMATED 85 10^3/uL (150-450)
[2023-02-12 09:22] LABS: ALBUMIN 3.3 G/DL (3.2-5.2); BILIRUBIN,DIRECT 0.4 MG/DL (<0.4); BILIRUBIN,TOTAL 1.5 MG/DL (0.3-1.2); CALCIUM LEVEL 8.4 MG/DL (8.3-10.6); CREATININE FOR GFR 1.43 MG/DL (0.70-1.30); POTASSIUM SERUM 3.7 MMOL/L (3.5-5.1); TOTAL PROTEIN 6.1 G/DL (5.7-8.2)
[2023-02-12 11:37] VITALS: BP 145/91
== END 2023-02-12 11:53 | disposition home or self-care (01) ==
LOC: M ED 07:44 → UNDOADMIN 10:22 → M ED INP 10:22 → M ED 11:53
DX: N17.9 Acute kidney failure, unspecified (principal); K70.30 Alcoholic cirrhosis of liver without ascites; F17.200 Nicotine dependence, unspecified, uncomplicated; Z86.718 Personal history of other venous thrombosis and embolism; Z79.810 Long term (current) use of selective estrogen receptor modulators (SERMs); Z79.899 Other long term (current) drug therapy

== ENCOUNTER → 2023-02-15 | Outpatient (CLI) | payer OTHER ==
[~2023-02-15] MED LIST changes: +PRES10CA2
[2023-02-15 18:59] LABS: CALCIUM LEVEL 8.1 MG/DL (8.3-10.6); CREATININE FOR GFR 1.37 MG/DL (0.70-1.30); GLOMERULAR FILTRATION RATE 54.7 (>42); POTASSIUM SERUM 3.9 MMOL/L (3.5-5.1)
== END ==
LOC: M LAB 16:40
PROVIDERS: ATTEND Emergency Medicine
DX: N17.9 Acute kidney failure, unspecified (principal)

== ENCOUNTER → 2023-06-08 | Outpatient (CLI) | payer OTHER | LOC: M RAD 09:04 | PROVIDERS: ATTEND Internal Medicine Gastroenterology | DX: K76.6 Portal hypertension (principal) ==

== ENCOUNTER → 2023-07-20 | Outpatient (CLI) | payer OTHER ==
[~2023-07-20] MED LIST changes: +ISOVUE-370 76% 100ML VIAL As Ordered ONE
== END ==
LOC: M RAD 08:35
PROVIDERS: ATTEND Nurse Practitioner Family
DX: I72.3 Aneurysm of iliac artery (principal); D73.2 Chronic congestive splenomegaly; K74.60 Unspecified cirrhosis of liver; R16.1 Splenomegaly, not elsewhere classified; N28.1 Cyst of kidney, acquired
CPT/HCPCS: 74177; Q9967

== ENCOUNTER → 2023-09-30 | Outpatient (CLI) | payer OTHER ==
[~2023-09-30] MED LIST changes: -ISOVUE-370 76% 100ML VIAL As Ordered ONE
[2023-09-30 16:53] LABS: BASO % 0.9 % (0.0-1.0); EOS # 0.4 10^3/uL (0.0-0.5); HEMATOCRIT 39.7 % (42.0-52.0); HEMOGLOBIN 12.5 g/dl (13.5-17.5); LYMPH # 0.8 10^3/uL (1.5-5.0); MEAN CORPUSCULAR HEMOGLOBIN 28.5 pg (27.0-33.0); MEAN CORPUSCULAR HGB CONC 31.5 g/dl (32.0-36.5); MEAN CORPUSCULAR VOLUME 90.4 fl (80.0-96.0); MONO # 0.5 10^3/uL (0.0-0.8); NEUTROPHILS # 2.9 10^3/uL (1.5-8.5); NEUTROPHILS % 62.9 % (36.0-66.0); PLATELET COUNT, AUTOMATED 79 10^3/uL (150-450); RED BLOOD COUNT 4.39 10^6/uL (4.30-6.10); WHITE BLOOD COUNT 4.6 10^3/uL (4.0-10.0)
[2023-09-30 17:07] LABS: ALBUMIN 3.3 G/DL (3.2-5.2); ALKALINE PHOSPHATASE 116 U/L (46-116); ALT/SGPT 29 U/L (7.0-40); AST/SGOT 29 U/L (<34); BILIRUBIN,DIRECT 0.2 MG/DL (<0.4); BILIRUBIN,TOTAL 0.6 MG/DL (0.3-1.2); BLOOD UREA NITROGEN 19 MG/DL (9-23); CARBON DIOXIDE LEVEL 28 MMOL/L (20-31); CHLORIDE LEVEL 110 MMOL/L (98-107); GLOMERULAR FILTRATION RATE > 60.0 (>42); GLUCOSE, FASTING 87 MG/DL (74-106); POTASSIUM SERUM 4.8 MMOL/L (3.5-5.1); SODIUM LEVEL 143 MMOL/L (136-145); TOTAL PROTEIN 6.3 G/DL (5.7-8.2)
== END ==
LOC: M LAB 16:09
PROVIDERS: ATTEND Internal Medicine Gastroenterology
DX: K76.6 Portal hypertension (principal)

== ENCOUNTER → 2024-04-11 | Outpatient (CLI) | payer OTHER | LOC: M RAD 13:36 | PROVIDERS: ATTEND Nurse Practitioner Family | DX: I72.3 Aneurysm of iliac artery (principal) ==

== ENCOUNTER 2024-06-03 07:21 | Observation (INO) | payer OTHER ==
[~2024-06-03] VITALS: Ht 177.8 cm; Wt 86.6 kg
[~2024-06-03 07:21] MED LIST changes: -PRES10CA2; +PRES10CA2 PO
[2024-06-03 08:17] VITALS: BP 108/56
[2024-06-03] MEDS ORDERED: ISOVUE-370 76% 100ML VIAL As Ordered ONE (08:17)
[2024-06-03 08:18] LABS: BASO # 0.1 10^3/uL (0.0-0.2); BASO % 1.2 % (0.0-1.0); EOS # 0.4 10^3/uL (0.0-0.5); EOS % 7.2 % (0.0-3.0); HEMOGLOBIN 12.4 g/dl (13.5-17.5); LYMPH # 0.7 10^3/uL (1.5-5.0); LYMPH % 13.3 % (24.0-44.0); MEAN CORPUSCULAR VOLUME 90.3 fl (80.0-96.0); MONO # 0.4 10^3/uL (0.0-0.8); NEUTROPHILS # 3.6 10^3/uL (1.5-8.5); NEUTROPHILS % 70.1 % (36.0-66.0); RED BLOOD COUNT 4.43 10^6/uL (4.30-6.10); WHITE BLOOD COUNT 5.1 10^3/uL (4.0-10.0)
[2024-06-03 08:21] LABS: PLATELET COUNT, AUTOMATED 73 10^3/uL (150-450)
[2024-06-03 08:28] LABS: INR 1.14; PARTIAL THROMBOPLASTIN TIME 32.1 SECONDS (24.8-34.2); PROTHROMBIN TIME 14.3 SECONDS (12.5-14.5)
[2024-06-03 08:39] LABS: ALBUMIN 3.3 G/DL (3.2-5.2); ALKALINE PHOSPHATASE 120 U/L (46-116); ALT/SGPT 28 U/L (7.0-40); AST/SGOT 28 U/L (<34); BILIRUBIN,DIRECT 0.2 MG/DL (<0.4); BILIRUBIN,TOTAL 0.6 MG/DL (0.3-1.2); BLOOD UREA NITROGEN 24 MG/DL (9-23); CALCIUM LEVEL 8.8 MG/DL (8.3-10.6); CARBON DIOXIDE LEVEL 23 MMOL/L (20-31); CHLORIDE LEVEL 113 MMOL/L (98-107); CREATININE FOR GFR 0.86 MG/DL (0.70-1.30); GLOMERULAR FILTRATION RATE > 60.0 (>42); GLUCOSE, FASTING 111 MG/DL (74-106); POTASSIUM SERUM 4.3 MMOL/L (3.5-5.1); SODIUM LEVEL 143 MMOL/L (136-145); TOTAL PROTEIN 6.4 G/DL (5.7-8.2)
[2024-06-03] MEDS ORDERED: MAGN400T35 PO (09:06)
[2024-06-03] MEDS ORDERED: THERTAB65 PO (09:06)
[2024-06-03] MEDS ORDERED: HOME MED LIST COMPLETE! XX SCH (09:10)
[2024-06-03 10:19] VITALS: BP 112/79
[2024-06-03] MEDS ORDERED: ACETAMINOPHEN TAB 650MG DOSE (2X325MG) PO PRN (10:20)
[2024-06-03] MEDS ORDERED: ASPI81TAEC PO (14:59)
[2024-06-03] MEDS ORDERED: ATOR1TAB21 PO (14:59)
[2024-06-03] MEDS: ASPIRIN 81MG ENTERIC TABLET PO SCH (15:06)
[2024-06-03] MEDS: SODIUM CHLORIDE 0.9% 1000ML IV ONE (15:06)
[2024-06-03 18:31] VITALS: BP 130/84
[2024-06-03] MEDS: ATORVASTATIN 20 MG TAB PO SCH (22:08)
[2024-06-04 07:04] LABS: EOS # 0.5 10^3/uL (0.0-0.5); EOS % 13.1 % (0.0-3.0); HEMATOCRIT 35.2 % (42.0-52.0); HEMOGLOBIN 11.3 g/dl (13.5-17.5); LYMPH # 0.7 10^3/uL (1.5-5.0); LYMPH % 16.5 % (24.0-44.0); MEAN CORPUSCULAR HEMOGLOBIN 28.3 pg (27.0-33.0); MEAN CORPUSCULAR HGB CONC 32.1 g/dl (32.0-36.5); MEAN CORPUSCULAR VOLUME 88.2 fl (80.0-96.0); MONO # 0.4 10^3/uL (0.0-0.8); MONO % 9.1 % (2.0-8.0); NEUTROPHILS # 2.4 10^3/uL (1.5-8.5); NEUTROPHILS % 59.8 % (36.0-66.0); RED BLOOD COUNT 3.99 10^6/uL (4.30-6.10); WHITE BLOOD COUNT 4.1 10^3/uL (4.0-10.0)
[2024-06-04 07:11] LABS: PLATELET COUNT, AUTOMATED 63 10^3/uL (150-450)
[2024-06-04 07:26] LABS: BLOOD UREA NITROGEN 19 MG/DL (9-23); CALCIUM LEVEL 8.5 MG/DL (8.3-10.6); CARBON DIOXIDE LEVEL 25 MMOL/L (20-31); CHLORIDE LEVEL 113 MMOL/L (98-107); CHOLESTEROL LEVEL 163 MG/DL (<200); CHOLESTEROL RISK RATIO 3.03 (<5); CREATININE FOR GFR 0.84 MG/DL (0.70-1.30); GLOMERULAR FILTRATION RATE > 60.0 (>42); GLUCOSE, FASTING 92 MG/DL (74-106); HDL CHOLESTEROL 53.7 MG/DL (>40); LDL CHOLESTEROL 96.9 MG/DL (<100); NON-HDL-C 109.3 MG/DL; POTASSIUM SERUM 4.1 MMOL/L (3.5-5.1); SODIUM LEVEL 143 MMOL/L (136-145); TRIGLYCERIDES LEVEL 62 MG/DL (<150)
[2024-06-04 08:07] LABS: HEMOGLOBIN A1c 5.5 % (4.0-6.0)
[2024-06-04] MEDS: MAGNESIUM OXIDE 400MG TAB (MAG-OX) PO SCH (09:05)
[2024-06-04 14:37] VITALS: BP 154/90; TEMP 97.8; O2SAT 97
== END 2024-06-04 14:40 | disposition home or self-care (01) ==
LOC: M ED 07:21 → M ED INP 10:19
PROVIDERS: ADMIT Internal Medicine Nephrology; ATTEND Internal Medicine Nephrology
DX: I63.9 Cerebral infarction, unspecified (principal); R20.2 Paresthesia of skin; I65.1 Occlusion and stenosis of basilar artery; R00.1 Bradycardia, unspecified; G47.30 Sleep apnea, unspecified; K70.30 Alcoholic cirrhosis of liver without ascites; I85.00 Esophageal varices without bleeding; K29.70 Gastritis, unspecified, without bleeding; R16.1 Splenomegaly, not elsewhere classified; D69.6 Thrombocytopenia, unspecified; N40.0 Benign prostatic hyperplasia without lower urinary tract symptoms; Z86.718 Personal history of other venous thrombosis and embolism; K57.90 Diverticulosis of intestine, part unspecified, without perforation or abscess without bleeding; M62.08 Separation of muscle (nontraumatic), other site; K42.9 Umbilical hernia without obstruction or gangrene; Z79.899 Other long term (current) drug therapy; Z79.82 Long term (current) use of aspirin
CPT/HCPCS: 36415; 70450; 70496; 70498; 70544; 70551; 71045; 80047; 80048; 80061; 80076; 83036; 85025; 85049; 85055; 85610; 85730; 93005; 93041; 93306; 94760; 96374; 99285; G0378; Q9967

== ENCOUNTER → 2024-08-22 | Outpatient (CLI) | payer MEDICARE, OTHER ==
[~2024-08-22] MED LIST changes: +ASPI81TAEC PO; +ATOR1TAB21 PO; +MAGN400T35 PO; +THERTAB65 PO
== END ==
LOC: M RAD 07:06
PROVIDERS: ATTEND Physician Assistant Medical
DX: R31.9 Hematuria, unspecified (principal)

== ENCOUNTER 2024-10-10 07:53 | Emergency (ER) | payer MEDICARE, OTHER ==
[~2024-10-10] VITALS: Ht 177.8 cm; Wt 87.7 kg
[2024-10-10 09:04] LABS: BASO # 0.1 10^3/uL (0.0-0.2); BASO % 1.3 % (0.0-1.0); EOS # 0.3 10^3/uL (0.0-0.5); EOS % 7.1 % (0.0-3.0); HEMATOCRIT 37.9 % (42.0-52.0); HEMOGLOBIN 12.2 g/dl (13.5-17.5); LYMPH # 0.7 10^3/uL (1.5-5.0); LYMPH % 14.5 % (24.0-44.0); MEAN CORPUSCULAR HEMOGLOBIN 28.2 pg (27.0-33.0); MEAN CORPUSCULAR HGB CONC 32.2 g/dl (32.0-36.5); MEAN CORPUSCULAR VOLUME 87.7 fl (80.0-96.0); MONO # 0.5 10^3/uL (0.0-0.8); MONO % 11.1 % (2.0-8.0); NEUTROPHILS # 3.1 10^3/uL (1.5-8.5); NEUTROPHILS % 65.6 % (36.0-66.0); RED BLOOD COUNT 4.32 10^6/uL (4.30-6.10); WHITE BLOOD COUNT 4.8 10^3/uL (4.0-10.0)
[2024-10-10 09:31] LABS: LIPASE 42 U/L (12-53)
[2024-10-10 09:34] LABS: ALBUMIN 3.4 G/DL (3.2-5.2); ALKALINE PHOSPHATASE 127 U/L (40-129); ALT/SGPT 29 U/L (7.0-40); AST/SGOT 30 U/L (<34); BILIRUBIN,DIRECT 0.3 MG/DL (<0.4); BILIRUBIN,TOTAL 0.9 MG/DL (0.3-1.2); BLOOD UREA NITROGEN 22 MG/DL (9-23); CALCIUM LEVEL 9.2 MG/DL (8.3-10.6); CARBON DIOXIDE LEVEL 25 MMOL/L (20-31); CHLORIDE LEVEL 111 MMOL/L (98-107); GLOMERULAR FILTRATION RATE > 60.0 (>42); GLUCOSE, FASTING 104 MG/DL (74-106); POTASSIUM SERUM 4.1 MMOL/L (3.5-5.1); SODIUM LEVEL 141 MMOL/L (136-145); TOTAL PROTEIN 6.9 G/DL (5.7-8.2)
[2024-10-10 10:06] LABS: PLATELET COUNT, AUTOMATED 88 10^3/uL (150-450)
[2024-10-10] MEDS ORDERED: ISOVUE-370 76% 100ML VIAL As Ordered ONE (11:11)
[2024-10-10] MEDS: KETOROLAC 30 MG/ML 1ML VIAL IV ONE (11:27)
[2024-10-10 14:36] LABS: CK-MB VALUE MASS 1.2 NG/ML (<3.6)
[2024-10-10 14:37] LABS: MB/CK RELATIVE INDEX 1.64 (< OR =4)
[2024-10-10] MEDS ORDERED: ASPI81TA26 PO (16:08)
[2024-10-10] MEDS ORDERED: DOCU100C16 PO (16:08)
[2024-10-10] MEDS ORDERED: HOME MED LIST COMPLETE! XX SCH (16:10)
[2024-10-10] MEDS: FUROSEMIDE 20 MG TAB PO ONE ×2 (16:25→21:18)
[2024-10-10] MEDS ORDERED: NICOTINE POLACRILEX 2 MG GUM PO PRN (20:05)
[2024-10-10] MEDS: ATORVASTATIN 20 MG TAB PO SCH (21:17)
[2024-10-10] MEDS: NICOTINE 21MG/24HR 1 EA TRANSDERMAL TD SCH (21:24)
[2024-10-10 21:41] LABS: INR 1.14; PROTHROMBIN TIME 14.9 SECONDS (12.5-14.5)
[2024-10-10 22:36] VITALS: TEMP 97.1
[2024-10-11 07:12] VITALS: BP 92/52
[2024-10-11] MEDS: DOCUSATE SODIUM 100MG CAPSULE PO SCH (08:15)
[2024-10-11] MEDS: MAGNESIUM OXIDE 400MG TAB (MAG-OX) PO SCH (08:15)
[2024-10-11] MEDS: ASPIRIN 81MG ENTERIC TABLET PO SCH (08:15)
[2024-10-11] MEDS: FUROSEMIDE 40 MG TAB PO SCH (08:15)
[2024-10-11 09:37] LABS: BLOOD UREA NITROGEN 23 MG/DL (9-23); CARBON DIOXIDE LEVEL 28 MMOL/L (20-31); CHLORIDE LEVEL 107 MMOL/L (98-107); CREATININE FOR GFR 1.08 MG/DL (0.70-1.30); GLOMERULAR FILTRATION RATE > 60.0 (>42); GLUCOSE, FASTING 139 MG/DL (74-106); POTASSIUM SERUM 4.2 MMOL/L (3.5-5.1); SODIUM LEVEL 140 MMOL/L (136-145)
[2024-10-11 11:00] VITALS: O2SAT 98
[2024-10-11] MEDS: oxyCODONE 5MG TAB PO ONE (11:00)
[2024-10-11] MEDS ORDERED: FURO40TA2 PO (11:55)
[2024-10-11] MEDS ORDERED: NICO21PAT TD (11:55)
[2024-10-11] MEDS ORDERED: OXYC-517 PO (11:55)
[2024-10-11] MEDS ORDERED: NICO2GUM PO (11:55)
[2024-10-11] MEDS ORDERED: ACET-683 PO (11:55)
[2024-10-11] MEDS ORDERED: ACETAMINOPHEN 325 MG TAB PO ONE (12:35)
[2024-10-11] MEDS: ACETAMINOPHEN 325 MG TAB PO ONE (12:52)
== END 2024-10-11 13:55 | disposition home or self-care (01) ==
LOC: M ED 07:53 → EDBD 07:53 → M ED 10-11 13:55
DX: K42.9 Umbilical hernia without obstruction or gangrene (principal); K70.31 Alcoholic cirrhosis of liver with ascites; K40.90 Unilateral inguinal hernia, without obstruction or gangrene, not specified as recurrent; N28.1 Cyst of kidney, acquired; K59.00 Constipation, unspecified; E78.5 Hyperlipidemia, unspecified; D64.9 Anemia, unspecified; F17.200 Nicotine dependence, unspecified, uncomplicated; Z86.718 Personal history of other venous thrombosis and embolism; Z86.73 Personal history of transient ischemic attack (TIA), and cerebral infarction without residual deficits; Z96.642 Presence of left artificial hip joint; Z79.82 Long term (current) use of aspirin; Z79.02 Long term (current) use of antithrombotics/antiplatelets; Z79.899 Other long term (current) drug therapy
CPT/HCPCS: 36415; 74177; 80048; 80076; 81001; 82550; 82553; 83690; 84484; 85025; 85049; 85055; 85610; 93005; 96374; 99284; J1885; Q9967

== ENCOUNTER → 2025-02-26 | Outpatient (CLI) | payer MEDICARE, OTHER ==
[~2025-02-26] MED LIST changes: +ACET-683 PO; +ASPI81TA26 PO; +DOCU100C16 PO; +FURO40TA2 PO; +NICO21PAT TD; +NICO2GUM PO; +OXYC-517 PO
== END ==
LOC: M RAD 07:34
PROVIDERS: ATTEND Physician Assistant
DX: K74.60 Unspecified cirrhosis of liver (principal); N28.1 Cyst of kidney, acquired

== ENCOUNTER 2025-09-22 08:27 | Emergency (ER) | payer OTHER ==
[2025-09-22] VITALS (7 sets, daily range): BP systolic 116–129; BP diastolic 68–85; TEMP 99.1–100; O2SAT 94–99
[~2025-09-22 08:27] MED LIST changes: -EQL50TAB2 PO; -IBUP-1022 PO; +IBUP600T42 PO; -NADO20TA PO; +NADO20TA38 PO; +VITA1TAB82 PO
[2025-09-22 09:34] LABS: BASO # 0.0 10^3/uL (0.0-0.2); BASO % 0.5 % (0.0-1.0); EOS # 0.4 10^3/uL (0.0-0.5); EOS % 5.8 % (0.0-3.0); LYMPH # 0.6 10^3/uL (1.5-5.0); LYMPH % 9.1 % (24.0-44.0); MONO # 0.6 10^3/uL (0.0-0.8); MONO % 9.9 % (2.0-8.0); NEUTROPHILS # 4.6 10^3/uL (1.5-8.5); NEUTROPHILS % 74.2 % (36.0-66.0); PLATELET COUNT, AUTOMATED 139 10^3/uL (150-450)
[2025-09-22 09:48] LABS: INR 1.27
[2025-09-22 09:59] LABS: ALT/SGPT 29.0 U/L (7.0-40); AST/SGOT 44.0 U/L (<34)
[2025-09-22 11:52] LABS: KETONE, URINE AUTO RFX NEGATIVE (NEGATIVE); LEUKOCYTE ESTERASE UR AUTO RFX NEGATIVE (NEGATIVE); NITRITE, URINE AUTO RFX NEGATIVE (NEGATIVE); RBC, URINE AUTO RFX 2 /HPF (0-3); SQUAM EPITHELIAL CELL UR AURFX 0 /HPF (0-6); WBC, URINE AUTO RFX 1 /HPF (0-3)
[2025-09-22] MEDS ORDERED: NS (Normal Saline) 0.9% 1,000 ML IV ONE (12:25)
[2025-09-22] MEDS: NS (Normal Saline) 0.9% 1,000 ML IV ONE (12:49)
[2025-09-22] MEDS: OCTREOTIDE ACETATE 100 MCG/ML VIAL **IV ADMINISTRATION ONLY IV ONE (12:50)
[2025-09-22] MEDS: POTASSIUM CHLORIDE 10MEQ SR TABLET PO ONE (12:50)
[2025-09-22] MEDS: PANTOPRAZOLE 40MG VIAL IV ONE (12:50)
[2025-09-22] MEDS: OCTREOTIDE ACETATE 1,200 MCG in NS 238.8 ML IV SCH (13:00)
[2025-09-22] MEDS ORDERED: FURO40TA2 PO (13:01)
[2025-09-22] MEDS ORDERED: ACET-683 PO (13:01)
[2025-09-22] MEDS ORDERED: ATOR1TAB21 PO (13:01)
[2025-09-22] MEDS ORDERED: PANT-23 PO (13:14)
[2025-09-22] MEDS ORDERED: HOME MED LIST COMPLETE! XX SCH (13:15)
[2025-09-22] MEDS: LIDOCAINE VISCOUS 2% SOLN 15 ML UDC SSP ONE (14:52)
== END 2025-09-22 16:00 | disposition short-term general hospital (02) ==
LOC: M ED 08:27 → EDBD 08:27 → M ED 16:00
DX: K92.2 Gastrointestinal hemorrhage, unspecified (principal); I85.00 Esophageal varices without bleeding; K40.30 Unilateral inguinal hernia, with obstruction, without gangrene, not specified as recurrent; K42.9 Umbilical hernia without obstruction or gangrene; I70.0 Atherosclerosis of aorta; D64.9 Anemia, unspecified; K70.31 Alcoholic cirrhosis of liver with ascites; E78.5 Hyperlipidemia, unspecified; K21.9 Gastro-esophageal reflux disease without esophagitis; F17.200 Nicotine dependence, unspecified, uncomplicated; M51.370 Other intervertebral disc degeneration, lumbosacral region with discogenic back pain only; R16.1 Splenomegaly, not elsewhere classified; N28.1 Cyst of kidney, acquired; Z86.73 Personal history of transient ischemic attack (TIA), and cerebral infarction without residual deficits; Z79.82 Long term (current) use of aspirin; Z79.1 Long term (current) use of non-steroidal anti-inflammatories (NSAID); Z79.02 Long term (current) use of antithrombotics/antiplatelets; Z79.899 Other long term (current) drug therapy; Z96.642 Presence of left artificial hip joint
CPT/HCPCS: 74177; 80047; 80076; 81001; 82140; 83605; 83690; 85025; 85610; 85730; 86850; 86900; 86901; 86920; 87486; 87581; 87633; 87798; 93041; 94760; 96365; 96366; 96375; 99285; J2354; J2470; P9016

== ENCOUNTER 2025-10-02 23:03 | Observation (INO) | payer MEDICAID, MEDICARE, OTHER ==
[~2025-10-02] VITALS: Ht 177.8 cm; Wt 89.9 kg
[~2025-10-02 23:03] MED LIST changes: +PANT-23 PO
[2025-10-03] LABS: VENOUS BASE EXCESS 0.9 (-2.0-2.0); VENOUS HCO3 26.3 MMOL/L (23.0-27.0); VENOUS O2 SATURATION 66.1 % (60.0-80.0); VENOUS PARTIAL PRESSURE CO2 45.3 mmHg (38.0-50.0); VENOUS PARTIAL PRESSURE O2 36.3 mmHg (30.0-50.0); VENOUS PH 7.381 UNITS (7.330-7.430); VENOUS STANDARD HCO3 24.7 MMOL/L; VENOUS TOTAL CO2 27.6 MMOL/L (24.0-28.0)
[2025-10-03 00:31] LABS: BASO # 0.1 10^3/uL (0.0-0.2); BASO % 0.9 % (0.0-1.0); EOS # 0.2 10^3/uL (0.0-0.5); EOS % 4.0 % (0.0-3.0); LYMPH # 0.9 10^3/uL (1.5-5.0); LYMPH % 16.8 % (24.0-44.0); MONO # 0.7 10^3/uL (0.0-0.8); MONO % 12.6 % (2.0-8.0); NEUTROPHILS # 3.5 10^3/uL (1.5-8.5); NEUTROPHILS % 65.3 % (36.0-66.0); PLATELET COUNT, AUTOMATED 111 10^3/uL (150-450)
[2025-10-03 00:32] LABS: CK-MB VALUE MASS 3.1 NG/ML (<3.6)
[2025-10-03 00:34] LABS: ALT/SGPT 27.0 U/L (7.0-40); AST/SGOT 42.0 U/L (<34); CALCIUM LEVEL 8.3 MG/DL (8.3-10.6); CARBON DIOXIDE LEVEL 26.0 MMOL/L (20-31); CHLORIDE LEVEL 105.0 MMOL/L (98-107); CREATININE FOR GFR 0.93 MG/DL (0.70-1.30); GLOMERULAR FILTRATION RATE 87.2 (>42); POTASSIUM SERUM 3.3 MMOL/L (3.5-5.1); SODIUM LEVEL 142.0 MMOL/L (136-145)
[2025-10-03 00:59] LABS: CPK CREATINE PHOSPHOKINASE 91.0 U/L (46-171); MB/CK RELATIVE INDEX 3.4 (< OR =4)
[2025-10-03 01:27] LABS: THYROXINE (T4) 4.0 UG/DL (4.5-10.9)
[2025-10-03] MEDS ORDERED: SPIR100T3 PO (07:31)
[2025-10-03 08:26] LABS: KETONE, URINE AUTO RFX NEGATIVE (NEGATIVE); LEUKOCYTE ESTERASE UR AUTO RFX NEGATIVE (NEGATIVE); NITRITE, URINE AUTO RFX NEGATIVE (NEGATIVE); RBC, URINE AUTO RFX 2 /HPF (0-3); SQUAM EPITHELIAL CELL UR AURFX 0 /HPF (0-6); WBC, URINE AUTO RFX 0 /HPF (0-3)
[2025-10-03] MEDS: LevoFLOXacin IV 750 MG in IV 1 EA IV ONE (08:26)
[2025-10-03] MEDS ORDERED: ATOR40TA75 PO (08:48)
[2025-10-03] MEDS ORDERED: HOME MED LIST COMPLETE! XX SCH (08:50)
[2025-10-03] MEDS: ASPIRIN 81 MG ENTERIC TABLET PO SCH (09:00)
[2025-10-03] MEDS: DOCUSATE SODIUM 100 MG CAPSULE PO SCH (09:00)
[2025-10-03] MEDS ORDERED: MOM 30 ML SUSPENSION UDC PO PRN (09:05)
[2025-10-03 12:15] VITALS: TEMP 97.5; O2SAT 96
[2025-10-03 12:15] LABS: BASO # 0.1 10^3/uL (0.0-0.2); BASO % 1.3 % (0.0-1.0); EOS # 0.2 10^3/uL (0.0-0.5); EOS % 4.8 % (0.0-3.0); LYMPH # 0.6 10^3/uL (1.5-5.0); LYMPH % 14.6 % (24.0-44.0); MONO # 0.4 10^3/uL (0.0-0.8); MONO % 10.4 % (2.0-8.0); NEUTROPHILS # 2.7 10^3/uL (1.5-8.5); NEUTROPHILS % 68.4 % (36.0-66.0); PLATELET COUNT, AUTOMATED 100 10^3/uL (150-450)
[2025-10-03 12:40] LABS: MAGNESIUM LEVEL 2.0 MG/DL (1.8-2.4)
[2025-10-03 12:41] LABS: ALT/SGPT 19 U/L (7.0-40); AST/SGOT 33 U/L (<34); CALCIUM LEVEL 7.9 MG/DL (8.3-10.6); CARBON DIOXIDE LEVEL 26 MMOL/L (20-31); CHLORIDE LEVEL 104 MMOL/L (98-107); CREATININE FOR GFR 0.82 MG/DL (0.70-1.30); GLOMERULAR FILTRATION RATE > 90.0 (>42); POTASSIUM SERUM 3.2 MMOL/L (3.5-5.1); SODIUM LEVEL 139 MMOL/L (136-145)
[2025-10-03 12:41] LABS: C REACTIVE PROTEIN QUANTITATIV 4.11 MG/DL (<1.0)
[2025-10-03] MEDS: PANTOPRAZOLE 40MG TAB PO SCH (13:26)
[2025-10-03] MEDS: POTASSIUM CHLORIDE 10MEQ SR TABLET PO ONE ×2 (13:26→18:29)
[2025-10-03] MEDS: FUROSEMIDE 40 MG TAB PO SCH (13:26)
[2025-10-03] MEDS: traMADol 50 MG TAB PO PRN (18:29)
[2025-10-03] MEDS: DICLOFENAC EPOLAMINE 1.3% PATCH TOP SCH (22:30)
[2025-10-03] MEDS: ATORVASTATIN 20 MG TAB PO SCH (22:30)
[2025-10-03 23:20] VITALS: BP 103/63; TEMP 98.3; O2SAT 95
[2025-10-04 03:44] VITALS: BP 120/72; TEMP 98.5; O2SAT 95
[2025-10-04 07:40] LABS: ALT/SGPT 23.0 U/L (7.0-40); AST/SGOT 32.0 U/L (<34); CALCIUM LEVEL 8.0 MG/DL (8.3-10.6); CARBON DIOXIDE LEVEL 27.0 MMOL/L (20-31); CHLORIDE LEVEL 106.0 MMOL/L (98-107); CREATININE FOR GFR 0.92 MG/DL (0.70-1.30); GLOMERULAR FILTRATION RATE 88.4 (>42); MAGNESIUM LEVEL 1.8 MG/DL (1.8-2.4); POTASSIUM SERUM 3.5 MMOL/L (3.5-5.1); SODIUM LEVEL 144.0 MMOL/L (136-145)
[2025-10-04] MEDS: ENOXAPARIN 40 MG/0.4 ML SYRINGE (J1650 PER 10MG) SC SCH (09:00)
[2025-10-04] MEDS: cefTRIAXone SOD 1 GM in DEXTROSE 5% (D5W) ADV/MINI-BAG 50 ML IV SCH (09:11)
[2025-10-04] MEDS: DOXYCYCLINE HYCLATE 100 MG TABLET PO SCH (09:12)
[2025-10-04 09:25] VITALS: BP 116/80
[2025-10-04] MEDS: SPIRONOLACTONE 50 MG TAB PO SCH (09:25)
[2025-10-04] MEDS ORDERED: DOXY100T PO (09:28)
[2025-10-04] MEDS ORDERED: DICL1PAT6 TOP (09:28)
[2025-10-04] MEDS: POTASSIUM CHLORIDE 10MEQ SR TABLET PO ONE (10:02)
== END 2025-10-04 13:24 | disposition home or self-care (01) ==
LOC: M ED 23:03 → M ED INP 23:04 → M MSPAV 10-03 23:14
PROVIDERS: ADMIT Student in an Organized Health Care Education/Training Program; ATTEND Student in an Organized Health Care Education/Training Program
DX: B34.8 Other viral infections of unspecified site (principal); K70.30 Alcoholic cirrhosis of liver without ascites; I85.00 Esophageal varices without bleeding; E87.6 Hypokalemia; D69.6 Thrombocytopenia, unspecified; N40.0 Benign prostatic hyperplasia without lower urinary tract symptoms; Z86.73 Personal history of transient ischemic attack (TIA), and cerebral infarction without residual deficits; G89.29 Other chronic pain; M54.50 Low back pain, unspecified; Z79.82 Long term (current) use of aspirin; Z79.899 Other long term (current) drug therapy
CPT/HCPCS: 36415; 71045; 71250; 72128; 72131; 80048; 80053; 80076; 81001; 82550; 82553; 82803; 83605; 83735; 83880; 84145; 84436; 84443; 84484; 85025; 86140; 87040; 87486; 87581; 87633; 87798; 93005; 93041; 94760; 96365; 96367; 99285; G0378; J0696; J1956

== ENCOUNTER 2025-11-02 06:56 | Inpatient (IN) | payer OTHER ==
[~2025-11-02] VITALS: Ht 177.8 cm; Wt 91.8 kg
[2025-11-02] VITALS (9 sets, daily range): BP systolic 92–126; BP diastolic 56–71; TEMP 96.5–99.2; O2SAT 93–98
[~2025-11-02 06:56] MED LIST changes: +ATOR40TA75 PO; +DICL1PAT6 TOP; +DOXY100T PO; +SPIR100T3 PO
[2025-11-02 08:27] LABS: BASO # 0.0 10^3/uL (0.0-0.2); BASO % 0.9 % (0.0-1.0); EOS # 0.3 10^3/uL (0.0-0.5); EOS % 5.4 % (0.0-3.0); LYMPH # 0.5 10^3/uL (1.5-5.0); LYMPH % 9.7 % (24.0-44.0); MONO # 0.6 10^3/uL (0.0-0.8); MONO % 13.3 % (2.0-8.0); NEUTROPHILS # 3.3 10^3/uL (1.5-8.5); NEUTROPHILS % 70.5 % (36.0-66.0); PLATELET COUNT, AUTOMATED 129 10^3/uL (150-450)
[2025-11-02] MEDS: IPRATROPIUM 0.5 MG/ALBUTEROL 2.5 MG INH SOL UD 3 ML NEB ONE (08:30)
[2025-11-02 08:52] LABS: ALT/SGPT 25.0 U/L (7.0-40); AST/SGOT 37.0 U/L (<34); CALCIUM LEVEL 8.2 MG/DL (8.3-10.6); CARBON DIOXIDE LEVEL 25.0 MMOL/L (20-31); CHLORIDE LEVEL 104.0 MMOL/L (98-107); CREATININE FOR GFR 1.0 MG/DL (0.70-1.30); GLOMERULAR FILTRATION RATE 80.0 (>42); POTASSIUM SERUM 3.7 MMOL/L (3.5-5.1); SODIUM LEVEL 138.0 MMOL/L (136-145)
[2025-11-02] MEDS ORDERED: ISOVUE-370 76% 100 ML VIAL As Ordered ONE (09:31)
[2025-11-02 09:56] LABS: INR 1.23
[2025-11-02] MEDS ORDERED: IPRATROPIUM 0.5 MG/ALBUTEROL 2.5 MG INH SOL UD 3 ML NEB PRN (12:15)
[2025-11-02 13:13] LABS: C REACTIVE PROTEIN QUANTITATIV 2.03 MG/DL (<1.0)
[2025-11-02 13:14] LABS: IRON (FE) 21.0 UG/DL (65-175); PERCENT SATURATION 6.7 % (19.7-50.0)
[2025-11-02 13:16] LABS: VITAMIN B12 LEVEL 861.0 PG/ML (211-911)
[2025-11-02] MEDS: cefTRIAXone SOD 2 GM in DEXTROSE 5% (D5W) ADV/MINI-BAG 50 ML IV ONE (14:54)
[2025-11-02] MEDS: FUROSEMIDE 40 MG/4 ML VIAL IV ONE (14:54)
[2025-11-02] MEDS: AZITHROMYCIN 250 MG TABLET PO SCH (15:12)
[2025-11-02] MEDS ORDERED: HOME MED LIST COMPLETE! XX SCH (15:20)
[2025-11-02] MEDS: FERRIC CARBOXYMALTOSE INJ 750 MG, VIAL MATE ADAPTER 1 EACH in NS 100 ML IV ONE (17:26)
[2025-11-02] MEDS: FUROSEMIDE 40 MG/4 ML VIAL IV SCH (17:26)
[2025-11-02] MEDS: ASPIRIN 81 MG ENTERIC TABLET PO SCH (17:33)
[2025-11-02 17:35] LABS: BASO # 0.0 10^3/uL (0.0-0.2); BASO % 0.7 % (0.0-1.0); EOS # 0.2 10^3/uL (0.0-0.5); EOS % 4.0 % (0.0-3.0); LYMPH # 0.5 10^3/uL (1.5-5.0); LYMPH % 11.6 % (24.0-44.0); MONO # 0.7 10^3/uL (0.0-0.8); MONO % 15.4 % (2.0-8.0); NEUTROPHILS # 3.0 10^3/uL (1.5-8.5); NEUTROPHILS % 67.9 % (36.0-66.0); PLATELET COUNT, AUTOMATED 134 10^3/uL (150-450)
[2025-11-02] MEDS: PANTOPRAZOLE 40MG TAB PO SCH (20:23)
[2025-11-02] MEDS: ATORVASTATIN 20 MG TAB PO SCH (20:24)
[2025-11-03] VITALS (10 sets, daily range): BP systolic 90–142; BP diastolic 53–94; TEMP 97.5–99; O2SAT 93–98
[2025-11-03 06:35] LABS: PLATELET COUNT, AUTOMATED 128 10^3/uL (150-450)
[2025-11-03 07:04] LABS: ALT/SGPT 23.0 U/L (7.0-40); AST/SGOT 36.0 U/L (<34); CALCIUM LEVEL 8.2 MG/DL (8.3-10.6); CARBON DIOXIDE LEVEL 24.0 MMOL/L (20-31); CHLORIDE LEVEL 104.0 MMOL/L (98-107); CREATININE FOR GFR 1.06 MG/DL (0.70-1.30); GLOMERULAR FILTRATION RATE 74.6 (>42); POTASSIUM SERUM 4.0 MMOL/L (3.5-5.1); SODIUM LEVEL 139.0 MMOL/L (136-145)
[2025-11-03] MEDS: ENOXAPARIN 40 MG/0.4 ML SYRINGE (J1650 PER 10MG) SC SCH (08:50)
[2025-11-03] MEDS: cefTRIAXone SOD 2 GM in DEXTROSE 5% (D5W) ADV/MINI-BAG 50 ML IV SCH (12:41)
[2025-11-03] MEDS: SIMETHICONE 80MG CHEW TAB PO PRN (19:50)
[2025-11-04] VITALS (10 sets, daily range): BP systolic 85–137; BP diastolic 56–79; TEMP 98.2–99.2; O2SAT 88–97
[2025-11-04 05:27] LABS: PLATELET COUNT, AUTOMATED 132 10^3/uL (150-450)
[2025-11-04 05:38] LABS: ALT/SGPT 22.0 U/L (7.0-40); AST/SGOT 38.0 U/L (<34); CALCIUM LEVEL 7.9 MG/DL (8.3-10.6); CARBON DIOXIDE LEVEL 25.0 MMOL/L (20-31); CHLORIDE LEVEL 106.0 MMOL/L (98-107); CREATININE FOR GFR 0.95 MG/DL (0.70-1.30); GLOMERULAR FILTRATION RATE 85.0 (>42); POTASSIUM SERUM 3.4 MMOL/L (3.5-5.1); SODIUM LEVEL 141.0 MMOL/L (136-145)
[2025-11-04] MEDS: POTASSIUM CHLORIDE 10MEQ SR TABLET PO ONE (08:50)
[2025-11-04 15:18] LABS: ASCITES FL COLOR PALE YELLOW (COLORLESS); SOURCE, BODY FLUID ASCITES
[2025-11-04 15:19] LABS: APPEARANCE, BODY FLUID HAZY (CLEAR)
[2025-11-05] MEDS: ACETAMINOPHEN 325 MG TAB PO PRN (02:41)
[2025-11-05 04:04] VITALS: BP 115/68; TEMP 98.3; O2SAT 94
[2025-11-05 06:37] LABS: PLATELET COUNT, AUTOMATED 142 10^3/uL (150-450)
[2025-11-05 07:05] LABS: ALT/SGPT 24.0 U/L (7.0-40); AST/SGOT 38.0 U/L (<34); CALCIUM LEVEL 7.9 MG/DL (8.3-10.6); CARBON DIOXIDE LEVEL 26.0 MMOL/L (20-31); CHLORIDE LEVEL 107.0 MMOL/L (98-107); CREATININE FOR GFR 0.95 MG/DL (0.70-1.30); GLOMERULAR FILTRATION RATE 85.0 (>42); POTASSIUM SERUM 3.7 MMOL/L (3.5-5.1); SODIUM LEVEL 141.0 MMOL/L (136-145)
[2025-11-05 08:03] VITALS: BP 93/56; TEMP 97.7; O2SAT 97
[2025-11-05 11:48] VITALS: BP 110/66; TEMP 98.7; O2SAT 94
[2025-11-05] MEDS: guaiFENesin SYRUP 200 MG/10 ML UDC PO PRN (12:47)
[2025-11-05] MEDS ORDERED: GUAI100S51 PO (14:02)
[2025-11-08 11:37] LABS: SOLUBLE TRANSFERRIN RECEPTOR 4.96 mg/L (0.76-1.76)
== END 2025-11-05 16:29 | disposition home or self-care (01) | DRG 432 ==
LOC: M ED 06:56 → M ED INP 12:07 → M PCU 13:46 → M MSPAV 11-04 17:04
PROVIDERS: ADMIT Internal Medicine; ATTEND Student in an Organized Health Care Education/Training Program
PROC: 30233N1 Transfusion of Nonautologous Red Blood Cells into Peripheral Vein, Percutaneous Approach (ICD-10-PCS; principal; 2025-11-02)
PROC: 0W9G3ZZ Drainage of Peritoneal Cavity, Percutaneous Approach (ICD-10-PCS; 2025-11-04)
DX: K70.31 Alcoholic cirrhosis of liver with ascites (principal); I81 Portal vein thrombosis; K76.6 Portal hypertension; K21.9 Gastro-esophageal reflux disease without esophagitis; K72.90 Hepatic failure, unspecified without coma; R16.1 Splenomegaly, not elsewhere classified; I25.10 Atherosclerotic heart disease of native coronary artery without angina pectoris; K40.90 Unilateral inguinal hernia, without obstruction or gangrene, not specified as recurrent; D69.6 Thrombocytopenia, unspecified; D50.9 Iron deficiency anemia, unspecified; I48.91 Unspecified atrial fibrillation; Z79.82 Long term (current) use of aspirin; Z79.899 Other long term (current) drug therapy